=== PATIENT | male | born 1985 | race Caucasian/White ===

== ENCOUNTER 2017-08-08 20:56 | Emergency (ER) | payer SELFPAY, OTHER ==
[2017-08-09] MEDS: ONDANSETRON (ODT) 4 MG TAB ODT (00:12)
[2017-08-09] MEDS: HYDROCODONE/APAP (5/325) TAB PO ×2 (00:13→01:57)
[2017-08-09] MEDS: DIPHTH/TET/ACEL PERTUSS (ADULT) 0.5 ML VIAL IM (00:14)
[2017-08-09] MEDS: LIDOCAINE 2% (MDV) 20 ML INJ INJ (00:14)
[2017-08-09] MEDS: CEFAZOLIN 1 GM INJ IM (01:50)
== END 2017-08-09 01:58 | disposition home or self-care (01) ==
LOC: FTE 20:56
DX: S62.634B Displaced fracture of distal phalanx of right ring finger, initial encounter for open fracture (principal); F17.210 Nicotine dependence, cigarettes, uncomplicated; W23.0XXA Caught, crushed, jammed, or pinched between moving objects, initial encounter; Y93.9 Activity, unspecified; Z23 Encounter for immunization
CPT/HCPCS: 12001; 73130-RT; 90471; 90715; 96372; 99284-25